=== PATIENT | female | born 1985 | race Caucasian/White ===

== ENCOUNTER 2017-07-26 08:37 | Emergency (ER) | payer MEDICAID, OTHER ==
[~2017-07-26] VITALS: Ht 172.7 cm; Wt 81.8 kg
[2017-07-26 09:22] LABS: APPEARANCE,URINE CLOUDY (CLEAR); GLUCOSE, URINE (UA) NEGATIVE (NEGATIVE); KETONES,URINE NEGATIVE (NEGATIVE); LEUKOCYTE ESTERASE ,URINE LARGE (NEGATIVE); OCCULT BLOOD,URINE LARGE (NEGATIVE); PROTEIN,URINE NEGATIVE (NEGATIVE)
[2017-07-26 09:30] LABS: ADD UA MICROSCOPIC YES
[2017-07-26 09:33] LABS: SQUAMOUS EPITHELIAL CELL,UR Few /LPF (None Seen); WBC,URINE 26-50 /HPF (0-5)
[2017-07-26 10:20] VITALS: BP 115/62
[2017-07-26] MEDS ORDERED: LIDOCAINE HCL/PF 1% 2 ML VIAL IM ONE (11:00)
[2017-07-26] MEDS ORDERED: CefTRIAXone SODIUM 1 GM/VIAL IM ONE (11:00)
== END 2017-07-26 11:04 | disposition home or self-care (01) ==
LOC: EMS 08:38
DX: N39.0 Urinary tract infection, site not specified (principal)
CPT/HCPCS: 81001; 87077; 87086; 87186; 96372; 99284; J0696; J3490

== ENCOUNTER 2017-08-25 13:26 | Emergency (ER) | payer OTHER ==
[~2017-08-25] VITALS: Ht 175.3 cm; Wt 81.5 kg
[2017-08-25] MEDS ORDERED: DEXAMETHASONE SOD PHOS 4 MG/ML 5 ML VIAL IM ONE (14:30)
[2017-08-25] MEDS ORDERED: PENICILLIN G BENZATHINE LA 1,200,000 UNITS/2 ML SYRINGE IM ONE (14:30)
[2017-08-25 15:18] VITALS: BP 128/71
== END 2017-08-25 15:34 | disposition home or self-care (01) ==
LOC: EMS 13:28
DX: J02.9 Acute pharyngitis, unspecified (principal); Z90.49 Acquired absence of other specified parts of digestive tract
CPT/HCPCS: 87430; 96372; 99284; J0561; J1100

== ENCOUNTER 2017-12-29 07:30 | Emergency (ER) | payer OTHER ==
[~2017-12-29] VITALS: Ht 175.3 cm; Wt 81.5 kg
[2017-12-29] MEDS ORDERED: CefTRIAXone SODIUM 1 GM/VIAL IM ONE (09:15)
[2017-12-29] MEDS ORDERED: AZITHROMYCIN 250 MG TABLET PO ONE (09:15)
[2017-12-29] MEDS ORDERED: LIDOCAINE HCL/PF 1% 2 ML VIAL IM ONE (09:15)
[2017-12-29 09:32] LABS: APPEARANCE,URINE TURBID (CLEAR); BILIRUBIN,URINE NEGATIVE (NEGATIVE); GLUCOSE, URINE (UA) NEGATIVE (NEGATIVE); KETONES,URINE NEGATIVE (NEGATIVE); LEUKOCYTE ESTERASE ,URINE LARGE (NEGATIVE); NITRATE,URINE NEGATIVE (NEGATIVE); OCCULT BLOOD,URINE LARGE (NEGATIVE); PH,URINE 6.5 (5.0-8.0); PROTEIN,URINE SEE CONFIRM (NEGATIVE); UROBILINOGEN,URINE 0.2 mg/dL (<=1.0)
[2017-12-29 09:36] LABS: SULFOSALICYLIC ACID,URINE 2+ (Negative)
[2017-12-29 09:37] LABS: RBC,URINE 51-100 /HPF (0-2); WBC,URINE 51-100 /HPF (0-5)
[2017-12-29 09:38] LABS: BACTERIA,URINE Few /HPF (None Seen); SQUAMOUS EPITHELIAL CELL,UR Few /LPF (None Seen)
[2017-12-29 09:55] VITALS: BP 127/80
== END 2017-12-29 10:17 | disposition home or self-care (01) ==
LOC: EMS 07:33
DX: N39.0 Urinary tract infection, site not specified (principal); F12.90 Cannabis use, unspecified, uncomplicated
CPT/HCPCS: 81001; 81025; 87077; 87086; 96372; 99284; J0696; J3490

== ENCOUNTER 2018-03-01 08:58 | Emergency (ER) | payer OTHER ==
[~2018-03-01] VITALS: Ht 175.3 cm; Wt 81.8 kg
[2018-03-01 09:03] VITALS: BP 141/73
[2018-03-01 09:32] LABS: APPEARANCE,URINE CLOUDY (CLEAR); BILIRUBIN,URINE NEGATIVE (NEGATIVE); GLUCOSE, URINE (UA) NEGATIVE (NEGATIVE); KETONES,URINE 15 mg/dL (NEGATIVE); LEUKOCYTE ESTERASE ,URINE NEGATIVE (NEGATIVE); NITRATE,URINE NEGATIVE (NEGATIVE); OCCULT BLOOD,URINE NEGATIVE (NEGATIVE); PROTEIN,URINE TRACE (NEGATIVE); UROBILINOGEN,URINE 0.2 mg/dL (<=1.0)
[2018-03-01 09:46] LABS: BACTERIA,URINE Few /HPF (None Seen); RBC,URINE None Seen /HPF (0-2); WBC,URINE 0-2 /HPF (0-5)
[2018-03-01 09:47] LABS: SQUAMOUS EPITHELIAL CELL,UR Many /LPF (None Seen)
== END 2018-03-01 12:08 | disposition left against medical advice (07) ==
LOC: EMS 09:01
DX: Z53.21 Procedure and treatment not carried out due to patient leaving prior to being seen by health care provider (principal)

== ENCOUNTER 2018-04-20 08:05 | Emergency (ER) | payer OTHER ==
[~2018-04-20] VITALS: Ht 175.3 cm; Wt 81.8 kg
[2018-04-20] MEDS ORDERED: PENICILLIN G BENZATHINE LA 1,200,000 UNITS/2 ML SYRINGE IM ONE (10:15)
[2018-04-20 10:22] VITALS: BP 138/93
== END 2018-04-20 10:38 | disposition home or self-care (01) ==
LOC: EMS 08:05
DX: J02.9 Acute pharyngitis, unspecified (principal); F12.90 Cannabis use, unspecified, uncomplicated
CPT/HCPCS: 96372; 99283; J0561